=== PATIENT | male | born 1945 | race Caucasian/White ===

== ENCOUNTER 2017-07-15 08:41 | Emergency (ER) | payer MEDICARE, OTHER ==
[2017-07-15 08:58] VITALS: BP 173/93
--- NOTE | 2017-07-15 09:20 | ERNOTE ---
Time Seen by Provider: 07/15/17 09:15 Stated Complaint: LOST VOICE Presenting Symptoms:: cough, sore throat Exam Limitations: no limitations Immunizations: IMMUNIZATION HX Immunizations Up to Date No History of Influenza Vaccine More Information Required Hx Pneumococcal Vaccination More Information Required Allergies/Adverse Reactions: Allergies No Known Allergies Allergy (Verified 05/19/16 11:52) Home Medications: HOME MEDICATIONS Aspirin [Aspirin Chewable] 81 mg PO DAILY 07/15/17 [Last Taken Unknown] Azithromycin [Zithromax] 250 mg PO DAILY #6 tablet 07/15/17 [Last Taken Unknown] Indomethacin 50 mg PO PRN PRN 07/15/17 [Last Taken Unknown] Multivit-Min/FA/Lycopen/Lutein [Centrum Silver Tablet] 1 each PO 07/15/17 [Last Taken Unknown] [place]-3S/Dha/Epa/Fish Oil [Fish Oil 1,200 mg Softgel] 1 each PO 07/15/17 [Last Taken Unknown] Ranitidine HCl [Zantac] 300 mg PO DAILY 07/15/17 [Last Taken Unknown] Simvastatin [Zocor] 40 mg PO HS 07/15/17 [Last Taken Unknown] guaiFENesin/DEXTROMETHORPHAN [Robitussin-Dm] 60 ml PO TID PRN #1 btl 07/15/17 [ Last Taken Unknown] - History of Present Ilness Narrative: Patient's symptoms have been going on for 3 days he has a sore throat his voice is very hoarse and he has a nocturnal cough. He has a history of sleep apnea he uses a CPAP machine he denies any fevers or chills he has not taken any medication for his condition. Review of Systems - Review of Systems Constitutional: Present: no symptoms reported EYE: Present: no symptoms reported ENT: Present: See HPI Respiratory: Present: See HPI Cardiology: Present: no symptoms reported Gastrointestinal/Abdominal: Present: no symptoms reported Genitourinary: Present: no symptoms reported Musculoskeletal: Present: no symptoms reported - Patient's Past Medical History Patient History - Medical: No pertinent hx, Other Patient History - Cardiac/Respiratory: Hypertension Patient History - Cancer: No Hx of Cancer Patient History - Surgical Procedures: T & A Patient History - Other: None - Social History Living Situations: home Psych History: No pertinent hx Smoking Status: Former smoker Alcohol Use: heavy Drug Use: none - Immunizations Immunizations Up to Date: No Hx Pneumococcal Vaccination: More Information Required to Determine History of Influenza Vaccine: More Information Required to Determine Physical Exam - Physical Exam General Appearance: Present: wd/wn, alert, no apparent distress Head Exam: Present: normal inspection, no evidence of injury Eye Exam: Normal inspection: bilateral, PERRL: bilateral, EOMI: bilateral Ears, Nose, Throat: Present: normal ENT inspection, other - posterior pharynx appears slightly injected no exudates are noted patient does have a very hoarse of voice and a very laryngitic voice. Neck: Present: normal inspection, nontender Respiratory: Present: no respiratory distress, normal breath sounds, no accessory muscle use - when patient takes a deep breath he has some end expiratory wheezes and cough however on inspiration he is completely clear all over. Cardiovascular/Chest: Present: regular rate, rhythm, no murmur, normal peripheral pulses Gastrointestinal/Abdominal: Present: normal bowel sounds ED Progress - Vital Signs Patient's Vital Signs:: I have reviewed the patient's vital signs. Vital Signs: Vital Signs 07/15/17 08:52 Temperature 36.4 C L Pulse Rate 74 Respiratory 16 Rate Blood Pressure 173/93 O2 Sat by Pulse 98 Oximetry - Progress/Reassessment Chief Complaint: Cough Plan - Plan Plan: In this examiner's opinion the patient has bronchitis. He also has laryngitis. He will be treated accordingly. Departure Clinical Impression: Bronchitis, Laryngitis - Departure Disposition: Home self-care Condition: Good Instructions: Laryngitis, [id number] Referrals: Rafia Harden MD [Primary Care Provider] - Prescriptions: Azithromycin [Zithromax] 250 mg PO DAILY #6 tablet guaiFENesin/DEXTROMETHORPHAN [Robitussin-Dm] 60 ml PO TID PRN #1 btl PRN Reason: Cough
== END 2017-07-15 09:26 | disposition home or self-care (01) ==
LOC: ER 08:41
DX: J40 Bronchitis, not specified as acute or chronic (principal); J04.0 Acute laryngitis; Z87.891 Personal history of nicotine dependence